=== PATIENT | female | born 1975 | race Caucasian/White ===

== ENCOUNTER 2021-07-26 18:21 | Emergency (ER) | payer BC ==
[~2021-07-26] VITALS: Ht 157.5 cm; Wt 90.9 kg
[2021-07-26] MEDS ORDERED: ondansetron 4mg rapidly disintigrating tab PO ONE (18:55)
[2021-07-26] MEDS ORDERED: normal saline 1000ml 1,000 ML IV ONE (19:05)
[2021-07-26] MEDS ORDERED: CASIRIVIMAB/IMDEVIMAB inject. 10 ML in normal saline 100ml IV soln 100 ML IV ONE (19:05)
[2021-07-26] MEDS ORDERED: ONDA4TAB12 PO (20:13)
[2021-07-26] MEDS ORDERED: ondansetron/PF 4mg/2ml inj IV ONE (21:10)
[2021-07-26] MEDS ORDERED: proCHLORperazine 10 MG/2 ml inj IV ONE (21:10)
[2021-07-26 21:57] VITALS: BP 146/85
== END 2021-07-26 21:58 | disposition home or self-care (01) ==
LOC: ER 18:22
DX: U07.1 COVID-19 (principal); R11.2 Nausea with vomiting, unspecified; E86.0 Dehydration; R00.0 Tachycardia, unspecified; I10 Essential (primary) hypertension
CPT/HCPCS: 96374; 96375; 99285; J0780; J2405; J7030; M0243; Q0244